=== PATIENT | male | born 1930 | race Caucasian/White ===

== ENCOUNTER 2017-11-19 12:27 | Emergency (ER) | payer BC ==
[2017-11-19] MEDS ORDERED: ONDANSETRON HCL IV 4 MG/2 ML VIAL IVP ONE (12:59)
[2017-11-19] MEDS ORDERED: 0.9 % SODIUM CHLORIDE 1000ML 1,000 ML IV SCH (13:00)
--- NOTE | 2017-11-19 13:04 | Emergency Department Record ---
History of Present Illness - General Chief complaint: Dehydration Stated complaint: NEEDS FLUIDS Time Seen by Provider: 11/19/17 12:59 Source: Patient Mode of Arrival: Ambulatory Limitations: No limitations - History of Present Illness Initial comments: 87 yo male presents to ED for evaluation of nausea, vomiting, and loose stools for the past 5-6 days. Patient reports diffuse abdominal as well, but came to ED for evaluation to the ED for possible dehydration. Patient denies fevers/ chills or productive cough symptoms, denies health problems other than DM. MD Complaint: Generalized weakness Onset/Timin -: Days(s) Location: Generalized Consistency: Constant Improves with: None Worsens with: None Associated Symptoms: Headaches, Loss of appetite, Nausea/vomiting, Myalgias - [place] Coma Scale Eye Response: (4) Open spontaneously Motor Response: (6) Obeys commands Verbal Response: (5) Oriented Juanis Total: 15 - Related Data Home Medications Medication Instructions Recorded Confirmed Last Taken Aspirin Chewable 81 mg PO DAILY 11/19/17 11/19/17 Unknown Dapagliflozin Propanediol [Farxiga] 5 mg PO DAILY 11/19/17 11/19/17 Unknown Ezetimibe 10 mg PO DAILY 11/19/17 11/19/17 Unknown Insulin Glargine,Hum.rec.anlog 48 units SQ QAM 11/19/17 11/19/17 Unknown [Lantus Solostar] Liraglutide [Victoza 3-Ad] 1.8 mg INJ QAM 11/19/17 11/19/17 Unknown Ranitidine HCl 150 mg PO DAILY 11/19/17 11/19/17 Unknown Previous Rx's Medication Instructions Recorded Ondansetron [Zofran Odt] 4 mg PO Q8H PRN #20 tab.rapdis 11/19/17 Sucralfate [Carafate] 1 g PO QID #60 udc 11/19/17 Allergies Allergy/AdvReac Type Severity Reaction Status Date / Time No Known Drug Allergies Allergy Verified 11/19/17 12:42 Travel Screening - Travel/Exposure Within Last 30 Days Have you traveled within the last 30 days?: No Review of Systems Constitutional: Reports: Malaise, Weakness. Denies: Night sweats Eyes: Denies: Eye discharge, Eye pain ENT: Denies: Congestion, Ear pain Respiratory: Denies: Cough, Dyspnea Cardiovascular: Denies: Chest pain, Dyspnea on exertion Endocrine: Denies: Fatigue, Heat or cold intolerance Gastrointestinal: Reports: Abdominal pain, Diarrhea, Nausea, Vomiting Genitourinary: Denies: Incontinence, Retention Musculoskeletal: Denies: Arthralgia, Back pain, Gout, Joint swelling Skin: Denies: Bruising, Change in color Neurological: Reports: Headache. Denies: Abnormal gait, Confusion, Seizure Psychiatric: Denies: Anxiety Hematological/Lymphatic: Denies: Anemia, Blood Clots Past Medical History - SOCIAL HISTORY Smoking Status: Never smoker Alcohol Use: None Drug Use: None - RESPIRATORY Hx Respiratory Disorders: No - CARDIOVASCULAR Hx Cardio Disorders: No - NEURO Hx Neuro Disorders: No - GI Hx GI Disorders: No - Hx Genitourinary Disorders: No - ENDOCRINE Hx Endocrine Disorders: Yes Hx Diabetes: Yes - MUSCULOSKELETAL Hx Musculoskeletal Disorders: No - PSYCH Hx Psych Problems: No - HEMATOLOGY/ONCOLOGY Hx Hematology/Oncology Disorders: No Family Medical History Any Significant Family History?: No Physical Exam - General General Appearance: Alert, Oriented x3, Cooperative, Mild distress Limitations: No limitations - Head Head exam: Atraumatic, Normocephalic, Normal inspection Head exam detail: negative: Abrasion, Contusion, Shabazz's sign, General tenderness, Hematoma, Laceration - Eye Eye exam: Normal appearance. negative: Conjunctival injection, Periorbital swelling, Periorbital tenderness, Scleral icterus - ENT ENT exam: Mucous membranes dry Ear exam: negative: Auricular hematoma, Auricular trauma Nasal Exam: negative: Active bleeding, Discharge, Dried blood, Foreign body Mouth exam: negative: Drooling, Laceration, Muffled voice, Tongue elevation - Neck Neck exam: Normal inspection. negative: Meningismus, Tenderness - Respiratory Respiratory exam: Normal lung sounds bilaterally. negative: Rales, Respiratory distress, Rhonchi, Stridor - Cardiovascular Cardiovascular Exam: Regular rate, Normal rhythm, Normal heart sounds - GI/Abdominal GI/Abdominal exam: Soft, Tenderness (Mild diffuse TTP, no rebound or guarding present). negative: Rebound, Rigid - Rectal Rectal exam: Deferred - exam: Deferred - Extremities Extremities exam: negative: Calf tenderness, Pedal edema - Back Back exam: Denies: CVA tenderness (R), CVA tenderness (L) - Neurological Neurological exam: Alert, Normal gait, Oriented X3 - Psychiatric Psychiatric exam: Normal affect, Normal mood - Skin Skin exam: Normal color. 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 AG 20 Glucose 318 BUN 30 Creatinine 1.0. Awaiting transfer to CT for imaging. Reevaluation #2: 11/19/17 14:42 Patient reassessed, reports improvement in his symptoms and wants to drink fluids. Water provided awaiting CT imaging. Reevaluation #3: 11/19/17 15:07 CT Abdomen and Pelvis: Thickening of the duodenum Enlarged retroperitoenal lymph nodes Enlarged prostate. Patient is tolerating PO at this time, appears stable for discharge with Zofran and Carafate as needed for his recurrent vomiting symptoms. Patient and his were informed of the patient's enlarged lymph nodes and instructed to follow-up with his oncologist in 1 week as directed. Medical Decision Making - Lab Data Result diagrams: 11/19/17 13:00 11/19/17 13:16 Disposition Disposition: Discharge Clinical Impression: Nausea & vomiting Qualifiers: Vomiting type: unspecified Vomiting Intractability: non-intractable Qualified Code(s): R11.2 - Nausea with vomiting, unspecified Disposition: Home, Self-Care Condition: (2) Stable Instructions: Acute Nausea and Vomiting (ED) Additional Instructions: Return to ED if your symptoms worsen or if you have any concerns. Zofran and Carafate as directed. Follow-up with your family doctor in 1-3 days as directed. Follow-up with your oncologist in 3-5 days as directed. Prescriptions: Ondansetron [Zofran Odt] 4 mg PO Q8H PRN #20 tab.rapdis PRN Reason: Nausea/Vomiting Sucralfate [Carafate] 1 g PO QID #60 [facility]: Patient Portal Access Time of Disposition: 15:11 Quality - Quality Measures Quality Measures: N/A - Blood Pressure Screening Does Patient Have Any of the Following: No Blood Pressure Classification: Pre-Hypertensive BP Reading Systolic Measurement: 134 Diastolic Measurement: 86 Screening for High Blood Pressure: < Pre-Hypertensive BP, F/U Documented > [ G8950] Pre-Hypertensive Follow-up Interventions: Referral to alternative/primary care provider.
[2017-11-19 13:13] LABS: HEMATOCRIT 47.6 % (42.0-52.0); HEMOGLOBIN 15.7 gm/dl (14.0-18.0); MEAN CELL VOLUME 91.2 fl (81-97); MEAN CORPUSCULAR HEMOGLOBIN 30.1 pg (27-33); PLATELET COUNT 225 K/uL (130-400); RED BLOOD COUNT 5.22 M/uL (4.40-5.70); RED CELL DISTRIBUTION WIDTH 14.7 % (11.5-14.5)
[2017-11-19 13:28] LABS: WHITE BLOOD COUNT W/O DIFF 37.7 K/uL (4.2-12.2)
[2017-11-19 13:31] LABS: BLOOD UREA NITROGEN 30 mg/dL (8-23)
[2017-11-19 13:32] LABS: EST GLOMERULAR FILTRATION RATE > 60 mL/min; TOTAL PROTEIN 7.1 g/dL (6.6-8.7)
[2017-11-19 13:34] LABS: GLUCOSE,RANDOM 318 mg/dL (74-109)
[2017-11-19 13:37] LABS: ALB/GLOB RATIO 1.5 (1.1-1.8); ALBUMIN 4.3 g/dL (4.0-5.0); ALKALINE PHOSPHATASE 95 U/L (40-129); ALT/SGPT 12 U/L (<41); AST/SGOT 15 U/L (10.0-50.0); LIPASE 16 U/L (13-60)
--- NOTE | 2017-11-20 10:30 | CT SCAN REPORT ---
EXAM: CT OF THE ABDOMEN AND PELVIS WITH CONTRAST HISTORY: NAUSEA, VOMITING, PAIN AND DIARRHEA. APPENDECTOMY. TECHNIQUE: Axial CT scan of the abdomen and pelvis was performed following the intravenous administration of 100 ml of Omnipaque 300 as the IV contrast. No oral contrast was utilized at the referring physician's request. Comparison: None. FINDINGS: No calcified gallstones are seen within the gallbladder. Mild diffuse fatty infiltration of the liver with no focal hepatic mass evident. No definite splenic, adrenal, pancreatic, or renal mass identified. There is a small hiatal hernia. There appears to be a thick walled appearance of the proximal aspect of the duodenal sweep including the descending and transverse portions in particular. This may involve the antrum of the stomach and region of the duodenal bulb as well and is presumably inflammatory change in this region with slight haziness in the adjacent nba-duodenal adipose tissue. The possibility of malignancy would seem less likely, but follow-up after suitable therapy may be useful to confirm or return to a normal appearance. Evaluation of the bowel is limited without oral contrast today. There are some mildly prominent lower posterior mediastinal and upper retrocrural lymph nodes with the largest of these located just posterior to the lower descending thoracic aorta measuring about 9 mm in maximum short axis. There is also a small extrapleural lymph node or nodule in the left lung base posteriorly measuring about 9 x 15 mm in size. These are nonspecific, but more conspicuous than the nodes normally seen in this region and suspicious for mild adenopathy. There are also a few lower retroperitoneal nodes borderline enlarged with the largest measuring about 9 mm in short axis just beyond the aortic bifurcation. Bilateral inguinal nodes also measuring about 9 mm in maximum short axis. The prostate is enlarged measuring about 5.4 cm in transverse x 4.6 cm in AP diameter. Correlation with physical exam and serum PSA suggested. Mild diverticulosis upper sigmoid colon and also some scattered diverticula in the descending colon with a few in the right side of the colon as well, but no definite diverticulitis evident. No appendicitis identified. No free intraperitoneal air or free intraperitoneal fluid identified. Mild degenerative disk disease at the L2-L3 level. IMPRESSION: 1. SMALL HIATAL HERNIA. 2. SOME DIFFUSE THICKENING IN THE WALL OF THE DUODENUM PROBABLY FROM THE LEVEL OF THE BULB THROUGH THE TRANSVERSE PORTION OF THE DUODENAL SWEEP. THIS MAY REPRESENT A DUODENITIS. THERE ARE SEVERAL MILDLY PROMINENT ALTHOUGH NOT DEFINITELY ENLARGED LOWER POSTERIOR MEDIASTINAL AND RETROCRURAL LYMPH NODES WELL AND ALSO A FEW ALONG THE RETROPERITONEUM MORE INFERIORLY WELL IN THE INGUINAL REGION BILATERALLY. THESE ARE NONSPECIFIC. 3. ENLARGED PROSTATE. 4. FOCAL PLEURAL NODULE OR SLIGHTLY PROMINENT NODE POSTERIORLY IN THE LEFT LUNG BASE WELL. 5. DEGENERATIVE CHANGE IN THE SPINE. JOB NUMBER: [id number] MTDD
== END 2017-11-19 15:25 | disposition home or self-care (01) ==
LOC: ER 12:27
DX: R11.2 Nausea with vomiting, unspecified (principal); R19.7 Diarrhea, unspecified; R51 Headache; R53.1 Weakness
CPT/HCPCS: 99284 ×2; 96374; 83605; 83690; 80053; 85027; 74177; Q9967; J2405; J7030

== ENCOUNTER 2017-11-29 17:45 | Observation (INO) | payer BC ==
[2017-11-29] MEDS ORDERED: HUMULIN R 100 UNIT/ML VIAL SC ONE (17:46)
--- NOTE | 2017-11-29 18:13 | Emergency Department Record ---
History of Present Illness - General Chief complaint: Hypergylcemia Stated complaint: ELEVATED BLOOD SUGAR Time Seen by Provider: 11/29/17 18:05 Source: Patient Mode of Arrival: Ambulatory Limitations: No limitations - History of Present Illness Initial comments: 87 yo male presents with elevated blood sugar. He had labs drawn at his oncologist office today. His blood sugar was 600. He has had a sore throat the last few days. He has not taken his medications the last few days for his diabetes. He rarely checks his sugars. He has not felt well for about a month. He has had a decrease in his appetite, frequent nausea with vomiting with intermittent diarrhea. NO blood in either. He was not aware of when his last accu check was performed. PCP is at [facility]. He was at the oncologist today as a followup for leukemia in remission. 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 and runs elevated WBC counts ( His WBC count was 44 on 06/27/17 and most recently 37 on 11/19/17) MD Complaint: Generalized weakness Onset/Timin -: Hour(s) Severity: Moderate Quality: Other Consistency: Constant Improves with: None Worsens with: None Context: Other Associated Symptoms: Nausea/vomiting - [place] Coma Scale Eye Response: (4) Open spontaneously Motor Response: (6) Obeys commands Verbal Response: (5) Oriented Juanis Total: 15 - Related Data Home Medications Medication Instructions Recorded Confirmed Last Taken Atorvastatin Calcium [Lipitor] 40 mg PO DAILY 11/29/17 11/29/17 Unknown Metformin HCl 1,000 mg PO BID 11/29/17 11/29/17 Unknown Previous Rx's Medication Instructions Recorded Ondansetron [Zofran Odt] 4 mg PO Q8H PRN #20 tab.rapdis 11/19/17 Sucralfate [Carafate] 1 g PO QID #60 udc 11/19/17 Allergies Allergy/AdvReac Type Severity Reaction Status Date / Time No Known Drug Allergies Allergy Verified 11/29/17 17:54 Travel Screening - Travel/Exposure Within Last 30 Days Have you traveled within the last 30 days?: No - Travel/Exposure Within Last Year Have you traveled outside the [place] in the last year?: No - Additonal Travel Details Have you been exposed to anyone with a communicable illness?: No - Travel Symptoms Symptom Screening: None Review of Systems Constitutional: Reports: Malaise, Weakness. Denies: Chills, Fever Eyes: Denies: Eye discharge, Eye pain, Photophobia, Vision change ENT: Reports: Throat pain. Denies: Congestion Respiratory: Reports: Cough. Denies: Dyspnea, Hemoptysis, Stridor, Wheezes Cardiovascular: Denies: Chest pain, Palpitations, Syncope Endocrine: Reports: Fatigue, Polydipsia, Polyuria Gastrointestinal: Reports: Diarrhea, Nausea, Vomiting. Denies: Abdominal pain, Constipation, Hematemesis, Hematochezia, Melena Genitourinary: Denies: Dysuria, Frequency, Hematuria Musculoskeletal: Denies: Arthralgia, Back pain, Joint swelling, Myalgia, Neck pain Skin: Denies: Bruising, Change in color, Rash Neurological: Reports: Weakness. Denies: Headache, Numbness Psychiatric: Denies: Anxiety Hematological/Lymphatic: Reports: Easy bruising. Denies: Swollen glands Past Medical History - SOCIAL HISTORY Smoking Status: Never smoker Alcohol Use: None Drug Use: None - RESPIRATORY Hx Respiratory Disorders: No - CARDIOVASCULAR Hx Cardio Disorders: No - NEURO Hx Neuro Disorders: No - GI Hx GI Disorders: No - Hx Genitourinary Disorders: No - ENDOCRINE Hx Endocrine Disorders: Yes Hx Diabetes: Yes - MUSCULOSKELETAL Hx Musculoskeletal Disorders: No - PSYCH Hx Psych Problems: No - HEMATOLOGY/ONCOLOGY Hx Hematology/Oncology Disorders: No Hx Cancer: Yes (leukemia) Family Medical History Any Significant Family History?: No Physical Exam - General General Appearance: Alert, Oriented x3, Cooperative, No acute distress Limitations: No limitations - Head Head exam: Atraumatic, Normal inspection - Eye Eye exam: Normal appearance. negative: Conjunctival injection, Scleral icterus - ENT ENT exam: Normal exam, Mucous membranes dry, Normal orophraynx Ear exam: Normal external inspection Nasal Exam: Normal inspection Mouth exam: Normal external inspection - Neck Neck exam: Normal inspection, Full ROM. negative: Tenderness - Respiratory Respiratory exam: Normal lung sounds bilaterally. negative: Respiratory distress, Rhonchi, Stridor, Wheezes - Cardiovascular Cardiovascular Exam: Regular rate, Normal rhythm, Normal heart sounds Peripheral Pulses: 2+: Radial (R), Radial (L) - GI/Abdominal GI/Abdominal exam: Soft, Normal bowel sounds. negative: Diminished bowel sounds , Rebound, Rigid, Tenderness - Rectal Rectal exam: Deferred - exam: Deferred - Extremities Extremities exam: Normal inspection, Full ROM, Normal capillary refill. negative: Tenderness - Back Back exam: Reports: Normal inspection, Full ROM. Denies: CVA tenderness (R), CVA tenderness (L), Muscle spasm, Rash noted, Tenderness - Neurological Neurological exam: Alert, Normal gait, Oriented X3 - Psychiatric Psychiatric exam: Normal affect, Normal mood - Skin Skin exam: Dry, Intact, Normal color, Warm Course Vital Signs 11/29/17 17:49 Temperature 98.4 F Pulse Rate 64 Respiratory 16 Rate Pulse Ox 96 - Reevaluation(s) Reevaluation #1: 11/29/17 18:41 pH is 7.34 11/29/17 18:52 The CBC was reviewed. The WBC is 45 11/29/17 18:55 The BMP was reviewed. No acute changes with normal HCO3 and AG. Glucose is pending. 11/29/17 19:02 Potassium is 4.6 11/29/17 19:22 Given the elevated blood sugar, diarrhea, and dehydration I recommend admission for glycemic control, hydration and monitoring. I RACHNA Campos of the admission service He was informed he needs a stool sample as well given his diarrhea. Medical Decision Making - Lab Data Result diagrams: 11/29/17 17:55 11/29/17 17:55 Disposition Disposition: Admit Clinical Impression: Nausea & vomiting, Hyperglycemia, Diarrhea Disposition: Still a Patient at [facility] Decision to Admit: Admit from ER Decision to Admit Date: 11/29/17 Decision to Admit Time: 19:25 Condition: (2) Stable Forms: Patient Portal Access Time of Disposition: 19:25 Quality - Quality Measures Quality Measures: N/A - Blood Pressure Screening Does Patient Have Any of the Following: Active Dx of HTN Blood Pressure Classification: Pre-Hypertensive BP Reading Systolic Measurement: 138 Diastolic Measurement: 75 Screening for High Blood Pressure: Patient Exclusion, Hx of HTN [G9744]
[2017-11-29] MEDS ORDERED: 0.9 % SODIUM CHLORIDE 1,000 ML BAG IV ONE (18:16)
[2017-11-29] MEDS ORDERED: ONDANSETRON HCL IV 4 MG/2 ML VIAL IVP ONE (18:16)
[2017-11-29 18:36] LABS: URINE APPEARANCE CLEAR; URINE BILIRUBIN NEGATIVE (NEGATIVE); URINE BLOOD NEGATIVE (NEGATIVE); URINE COLOR YELLOW; URINE KETONE NEGATIVE (NEGATIVE); URINE LEUKOCYTE ESTERASE NEGATIVE (NEGATIVE); URINE NITRITE NEGATIVE (NEGATIVE); URINE PROTEIN NEGATIVE (NEGATIVE); URINE UROBILINOGEN 0.2 E.U./dL (0.20 - 1.00)
[2017-11-29 18:37] LABS: HEMATOCRIT 47.1 % (42.0-52.0); HEMOGLOBIN 15.9 gm/dl (14.0-18.0); MEAN CELL VOLUME 89.9 fl (81-97); MEAN CORPUSCULAR HEMOGLOBIN 30.3 pg (27-33); MEAN CORPUSCULAR HGB CONC 33.8 g/dl (32-36); MEAN PLATELET VOLUME 10.8 fl (7.4-10.4); PLATELET COUNT 246 K/uL (130-400); RED BLOOD COUNT 5.24 M/uL (4.40-5.70); RED CELL DISTRIBUTION WIDTH 14.4 % (11.5-14.5)
[2017-11-29 18:42] LABS: WHITE BLOOD COUNT W/O DIFF 45.7 K/uL (4.2-12.2)
[2017-11-29 18:49] LABS: BLOOD UREA NITROGEN 23 mg/dL (8-23); EST GLOMERULAR FILTRATION RATE > 60 mL/min
[2017-11-29 18:50] LABS: TOTAL PROTEIN 7.5 g/dL (6.6-8.7)
[2017-11-29 18:54] LABS: ALT/SGPT 16 U/L (<41)
[2017-11-29 18:55] LABS: AST/SGOT 15 U/L (10.0-50.0)
[2017-11-29 19:04] LABS: ALB/GLOB RATIO 1.6 (1.1-1.8); ALBUMIN 4.6 g/dL (4.0-5.0); ALKALINE PHOSPHATASE 110 U/L (40-129); LIPASE 31 U/L (13-60)
[2017-11-29 19:05] LABS: GLUCOSE,RANDOM 498 mg/dL (74-109)
[2017-11-29 19:14] LABS: ACETONE,SERUM NEGATIVE (NEGATIVE)
[2017-11-29] MEDS ORDERED: HUMULIN R 100 UNIT/ML VIAL SQ ONE (19:19)
[2017-11-29] MEDS ORDERED: HUMULIN R 100 UNIT/ML VIAL SQ PRN (20:14)
[2017-11-29] MEDS ORDERED: ACETAMINOPHEN 500 MG TABLET PO PRN (20:14)
[2017-11-29 21:15] LABS: URINE GLUCOSE (UA) >=1000 mg/dL (NEGATIVE)
[2017-11-29] MEDS: PANTOPRAZOLE SODIUM IV 40 MG VIAL IV SCH (21:46)
[2017-11-29] MEDS: METFORMIN 500 MG TABLET PO SCH (21:46)
[2017-11-29] MEDS: POTASSIUM CHLORIDE/D5-0.9%NACL 20 MEQ/1,000 ML BAG IV SCH (21:47)
[2017-11-30] MEDS: POTASSIUM CHLORIDE/D5-0.9%NACL 20 MEQ/1,000 ML BAG IV SCH ×2 (05:55→14:16)
[2017-11-30 07:15] LABS: HEMATOCRIT 38.2 % (42.0-52.0); HEMOGLOBIN 12.3 gm/dl (14.0-18.0); MEAN CORPUSCULAR HEMOGLOBIN 29.6 pg (27-33); MEAN CORPUSCULAR HGB CONC 32.2 g/dl (32-36); MEAN PLATELET VOLUME 10.7 fl (7.4-10.4); PLATELET COUNT 182 K/uL (130-400); RED BLOOD COUNT 4.15 M/uL (4.40-5.70); RED CELL DISTRIBUTION WIDTH 14.3 % (11.5-14.5)
[2017-11-30] MEDS ORDERED: HUMULIN R 100 UNIT/ML VIAL SQ SCH (07:30)
[2017-11-30 07:31] LABS: WHITE BLOOD COUNT W/O DIFF 27.5 K/uL (4.2-12.2)
[2017-11-30 07:37] LABS: ALB/GLOB RATIO 1.9 (1.1-1.8); ALBUMIN 3.5 g/dL (4.0-5.0); ALKALINE PHOSPHATASE 76 U/L (40-129); ALT/SGPT 11 U/L (<41); AST/SGOT 10 U/L (10.0-50.0); BLOOD UREA NITROGEN 15 mg/dL (8-23); CREATININE 0.8 mg/dL (0.7-1.2); EST GLOMERULAR FILTRATION RATE > 60 mL/min; GLUCOSE,RANDOM 338 mg/dL (74-109); TOTAL PROTEIN 5.3 g/dL (6.6-8.7)
[2017-11-30] MEDS: ASPIRIN 81 MG CHEWABLE TABLET PO SCH (09:43)
[2017-11-30] MEDS: METFORMIN 500 MG TABLET PO SCH ×2 (09:43→22:41)
[2017-11-30] MEDS: ATORVASTATIN 20 MG TABLET PO SCH (09:43)
[2017-11-30] MEDS: PANTOPRAZOLE SODIUM IV 40 MG VIAL IV SCH (09:44)
[2017-11-30] MEDS: ENOXAPARIN 40 MG/0.4 ML SYR SC SCH (09:44)
[2017-11-30 09:57] LABS: CRYPTOSPORIDIUM PARVUM ANTIGEN NOT DETECTED (NOT DETECT); GIARDIA LAMBLIA ANTIGEN NOT DETECTED (NOT DETECT); ROTOVIRUS DETECTED (NOT DETECT)
[2017-11-30 10:38] LABS: MOLECULAR C DIFF TOXIN SCREEN NOT DETECTED (NOT DETECT)
[2017-11-30 11:03] LABS: STOOL FOR POLYS NO WBC'S OBSERVED (NO WBC'S)
--- NOTE | 2017-11-30 12:08 | History & Physical ---
History of Present Illness - Date of Service Date of Service for History & Physical: 11/30/17 - History of Present Illness Admitting Diagnosis: dehydration, vomiting, diarrhea, hyperglycemia History of Present Illness: Mr. Zhang is an 87 year old male who presented to the ED on with elevated blood sugar. He had labs drawn at his oncologist's office earlier in the day and his blood sugar was 600. He has had a sore throat the last few days and diarrhea for about 2 weeks. He has not taken his medications the last few days for his diabetes. He rarely checks his sugars. He has not felt well for about a month. He has had a decrease in his appetite, frequent nausea with vomiting with intermittent diarrhea. NO blood in either. He was not aware of when his last accu check was performed. PCP is at [facility]. He was at the oncologist today as a followup for leukemia in remission. 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 and runs elevated WBC counts ( His WBC count was 44 on 06/27/17 and most recently 37 on 11/19/17). Additional history includes dm and hyperlipidemia. In the ED, his vital signs were within normal limits. His WBC was 45, no acute changes with normal HC03 and AG, K 4.6. Given the pt's comorbidities, elevated blood sugar, diarrhea, and dehydration, he was admitted for glycemic control, hydration and monitoring. A stool sample was obtained for culture. Plan IV hydration and laboratory monitoring. 11/30/17: Pt. is resting comfortably in bed. His and son are at his bedside. Informed pt. that his stool was positive for rotovirus and explained treatment with supportive care. Plan to advance diet as tolerated, continue IV fluids for dehydration, and glycemic monitoring with SS insulin. Travel Screening - Travel/Exposure Within Last 30 Days Have you traveled within the last 30 days?: No - Travel/Exposure Within Last Year Have you traveled outside the [place] in the last year?: No - Additonal Travel Details Have you been exposed to anyone with a communicable illness?: No - Travel Symptoms Symptom Screening: None Review of Systems Constitutional: Reports: Malaise, Weakness. Denies: Chills, Fever Eyes: Denies: Eye discharge, Eye pain, Photophobia, Vision change ENT: Reports: Throat pain. Denies: Congestion Respiratory: Reports: Cough. Denies: Dyspnea, Hemoptysis, Stridor, Wheezes Cardiovascular: Denies: Chest pain, Palpitations, Syncope Endocrine: Reports: Fatigue, Polydipsia, Polyuria Gastrointestinal: Reports: Diarrhea, Nausea, Vomiting. Denies: Abdominal pain, Constipation, Hematemesis, Hematochezia, Melena Genitourinary: Denies: Dysuria, Frequency, Hematuria Musculoskeletal: Denies: Arthralgia, Back pain, Joint swelling, Myalgia, Neck pain Skin: Denies: Bruising, Change in color, Rash Neurological: Reports: Weakness. Denies: Headache, Numbness Psychiatric: Denies: Anxiety Hematological/Lymphatic: Reports: Easy bruising. Denies: Swollen glands Past Medical History - SOCIAL HISTORY Smoking Status: Never smoker - RESPIRATORY Hx Respiratory Disorders: No - CARDIOVASCULAR Hx Cardio Disorders: No - NEURO Hx Neuro Disorders: No - GI Hx GI Disorders: No - Hx Genitourinary Disorders: No - ENDOCRINE Hx Endocrine Disorders: Yes Hx Diabetes: Yes - MUSCULOSKELETAL Hx Musculoskeletal Disorders: No - PSYCH Hx Psych Problems: No - HEMATOLOGY/ONCOLOGY Hx Hematology/Oncology Disorders: No Hx Cancer: Yes (leukemia) Family Medical History Any Significant Family History?: No H&P Meds/Allergies - Allergies Allergies: Allergies Allergy/AdvReac Type Severity Reaction Status Date / Time No Known Drug Allergies Allergy Verified 11/29/17 17:54 - Home Medications Home Medications Medication Instructions Recorded Confirmed Last Taken Atorvastatin Calcium [Lipitor] 40 mg PO DAILY 11/29/17 11/29/17 Unknown Metformin HCl 1,000 mg PO BID 11/29/17 11/29/17 Unknown Previous Rx's Medication Instructions Recorded Ondansetron [Zofran Odt] 4 mg PO Q8H PRN #20 tab.rapdis 11/19/17 Sucralfate [Carafate] 1 g PO QID #60 udc 11/19/17 - Active Medications Active Medications: Current Medications Acetaminophen (Tylenol 500mg Tab) 500 mg PO Q6H PRN PRN Reason: PAIN/TEMP Aspirin (Aspirin Chewable) 81 mg PO DAILY [facility] Last Admin: 11/30/17 09:43 Dose: 81 mg Atorvastatin Calcium (Lipitor) 40 mg PO DAILY [facility] Last Admin: 11/30/17 09:43 Dose: 40 mg Enoxaparin Sodium (Lovenox) 40 mg SC DAILY [facility] Last Admin: 11/30/17 09:44 Dose: 40 mg Potassium Chloride/Dextrose/Sod Cl () 20 meq in 1,000 mls @ 125 mls/hr IV Q8H [facility] Last Admin: 11/30/17 05:55 Dose: 125 mls/hr Insulin Human Regular (Humulin R) 1 unit SQ TIDAC [facility]; Protocol Metformin HCl (Glucophage Ir) 1,000 mg PO BID [facility] Last Admin: 11/30/17 09:43 Dose: 1,000 mg Ondansetron HCl (Zofran) 4 mg IVP Q4H PRN PRN Reason: NAUSEA Pantoprazole Sodium (Protonix Iv) 40 mg IV DAILY [facility] Last Admin: 11/30/17 09:44 Dose: 40 mg Physical Exam - Vital Signs Vital Signs: Vital Signs - Last 24 Hrs Temp Pulse Pulse Resp BP BP Pulse Ox 11/30/17 09:36 98.5 F 103/49 11/30/17 08:00 98.5 F 59 L 16 103/49 97 11/29/17 20:54 65 16 11/29/17 20:00 98.0 F 65 18 140/72 95 11/29/17 19:38 66 16 138/66 95 11/29/17 19:35 65 20 138/66 97 11/29/17 17:49 98.4 F 64 16 138/75 96 - General General Appearance: Alert, Oriented x3, Cooperative, No acute distress Limitations: No limitations - Head Head exam: Atraumatic, Normal inspection - Eye Eye exam: Normal appearance. negative: Conjunctival injection, Scleral icterus - ENT ENT exam: Normal exam, Mucous membranes dry, Normal orophraynx Ear exam: Normal external inspection Nasal Exam: Normal inspection Mouth exam: Normal external inspection - Neck Neck exam: Normal inspection, Full ROM. negative: Tenderness - Respiratory Respiratory exam: Normal lung sounds bilaterally. negative: Respiratory distress, Rhonchi, Stridor, Wheezes - Cardiovascular Cardiovascular Exam: Regular rate, Normal rhythm, Normal heart sounds Peripheral Pulses: 2+: Radial (R), Radial (L) - GI/Abdominal GI/Abdominal exam: Soft, Normal bowel sounds. negative: Diminished bowel sounds , Rebound, Rigid, Tenderness - Rectal Rectal exam: Deferred - exam: Deferred - Extremities Extremities exam: Normal inspection, Full ROM, Normal capillary refill. negative: Tenderness - Back Back exam: Reports: Normal inspection, Full ROM. Denies: CVA tenderness (R), CVA tenderness (L), Muscle spasm, Rash noted, Tenderness - Neurological Neurological exam: Alert, Normal gait, Oriented X3 - Psychiatric Psychiatric exam: Normal affect, Normal mood - Skin Skin exam: Dry, Intact, Normal color, Warm Results - Labs Result Diagrams: 11/30/17 06:10 11/30/17 06:10 Labs Last 24 Hours: Laboratory Results - last 24 hr 11/29/17 11/29/17 11/29/17 09:11 17:55 17:55 WBC 45.7 H* RBC 5.24 Hgb 15.9 Hct 47.1 MCV 89.9 MCH 30.3 MCHC 33.8 RDW 14.4 Plt Count 246 MPV 10.8 H Neutrophils % 29.0 L Band Neutrophils % Eosinophils % Not Reportable Basophils % Not Reportable Lymphocytes 67.0 H Monocytes 4.0 Basophils Eosinophil Count VBG pH 7.34 Sodium 137 Potassium 4.6 H Chloride 96 L Carbon Dioxide 25.0 Anion Gap 16.0 BUN 23 Creatinine 1.0 Estimated GFR > 60 POC Glucose Random Glucose 498 H* Hemoglobin A1c Calcium 9.7 Total Bilirubin 0.40 AST 15 ALT 16 Alkaline Phosphatase 110 Total Protein 7.5 Albumin 4.6 Globulin 2.9 Albumin/Globulin Ratio 1.6 Lipase 31 Urine Color Urine Appearance Urine pH Ur Specific [place] Urine Protein Urine Glucose (UA) Urine Ketones Urine Blood Urine Nitrite Urine Bilirubin Urine Urobilinogen Ur Leukocyte Esterase Stool Occult Blood Stool for White Cells No wbc's observed Rotavirus Antigen Detected Acetone, Qual Negative C. difficile Ag & Toxin Not detected Cryptosporid parvum Ag Not detected Giardia lamblia Ag Not detected 11/29/17 11/29/17 11/29/17 18:30 20:30 22:00 WBC RBC Hgb Hct MCV MCH MCHC RDW Plt Count MPV Neutrophils % Band Neutrophils % Eosinophils % Basophils % Lymphocytes Monocytes Basophils Eosinophil Count VBG pH Sodium Potassium Chloride Carbon Dioxide Anion Gap BUN Creatinine Estimated GFR POC Glucose 357 H Cancelled Random Glucose Hemoglobin A1c Calcium Total Bilirubin AST ALT Alkaline Phosphatase Total Protein Albumin Globulin Albumin/Globulin Ratio Lipase Urine Color Yellow Urine Appearance Clear Urine pH 5.5 Ur Specific [place] 1.010 Urine Protein Negative Urine Glucose (UA) >=1000 mg/dl H Urine Ketones Negative Urine Blood Negative Urine Nitrite Negative Urine Bilirubin Negative Urine Urobilinogen 0.2 Ur Leukocyte Esterase Negative Stool Occult Blood Negative Stool for White Cells Rotavirus Antigen Acetone, Qual C. difficile Ag & Toxin Cryptosporid parvum Ag Giardia lamblia Ag 11/30/17 11/30/17 11/30/17 06:00 06:00 06:10 WBC 27.5 H* RBC 4.15 L Hgb 12.3 L Hct 38.2 L MCV 92.0 MCH 29.6 MCHC 32.2 RDW 14.3 Plt Count 182 MPV 10.7 H Neutrophils % 22.0 L Band Neutrophils % 0.0 Eosinophils % Not Reportable Basophils % Not Reportable Lymphocytes 72.0 H Monocytes 5.0 Basophils 0.0 Eosinophil Count 1.0 VBG pH Sodium Cancelled Potassium Cancelled Chloride Cancelled Carbon Dioxide Cancelled Anion Gap Cancelled BUN Cancelled Creatinine Cancelled Estimated GFR Cancelled POC Glucose 300 H Random Glucose Cancelled Hemoglobin A1c Calcium Cancelled Total Bilirubin AST ALT Alkaline Phosphatase Total Protein Albumin Globulin Albumin/Globulin Ratio Lipase Urine Color Urine Appearance Urine pH Ur Specific [place] Urine Protein Urine Glucose (UA) Urine Ketones Urine Blood Urine Nitrite Urine Bilirubin Urine Urobilinogen Ur Leukocyte Esterase Stool Occult Blood Stool for White Cells Rotavirus Antigen Acetone, Qual C. difficile Ag & Toxin Cryptosporid parvum Ag Giardia lamblia Ag 11/30/17 11/30/17 06:10 06:10 WBC RBC Hgb Hct MCV MCH MCHC RDW Plt Count MPV Neutrophils % Band Neutrophils % Eosinophils % Basophils % Lymphocytes Monocytes Basophils Eosinophil Count VBG pH Sodium 142 Potassium 4.2 Chloride 104 Carbon Dioxide 25.0 Anion Gap 13.0 BUN 15 Creatinine 0.8 Estimated GFR > 60 POC Glucose Random Glucose 338 H Hemoglobin A1c 9.50 H Calcium 8.1 L Total Bilirubin 0.40 AST 10 ALT 11 Alkaline Phosphatase 76 Total Protein 5.3 L Albumin 3.5 L Globulin 1.8 Albumin/Globulin Ratio 1.9 H Lipase Urine Color Urine Appearance Urine pH Ur Specific [place] Urine Protein Urine Glucose (UA) Urine Ketones Urine Blood Urine Nitrite Urine Bilirubin Urine Urobilinogen Ur Leukocyte Esterase Stool Occult Blood Stool for White Cells Rotavirus Antigen Acetone, Qual C. difficile Ag & Toxin Cryptosporid parvum Ag Giardia lamblia Ag VTE H&P Assessment - Risk for VTE Risk for VTE: Yes Risk Level: Moderate Risk Assessment Date: 11/30/17 Risk Assessment Time: 09:00 VTE Orders Placed or Will Be Placed: Yes Plan - Detailed Diagnosis and Plan (1) Rotavirus enteritis Current Visit: Yes Status: Acute Base Code: A08.0 - ROTAVIRAL ENTERITIS Comment: 11/30/17 -Stool positive for rotovirus, contact isolation -Continue IV hydration -Advance diet as tolerated -Zofran 4mg q4h prn nausea (2) Hyperglycemia Current Visit: Yes Status: Acute Base Code: R73.9 - HYPERGLYCEMIA, UNSPECIFIED Comment: 11/30/17: -Accuchecks tidac, ss insulin -A1C 9.5, accuchecks have ranged from 300-380 since admission -pt. advanced to ADA diet for lunch and dinner today (3) At risk for deep venous thrombosis Current Visit: Yes Status: Acute Base Code: Z91.89 - OTH PERSONAL RISK FACTORS, NOT ELSEWHERE CLASSIFIED Comment: 11/30/17 -moderate risk for dvt -40mg lovenox sc daily (4) Full code status Current Visit: Yes Status: Acute Base Code: Z78.9 - OTHER SPECIFIED HEALTH STATUS Comment: 11/30/17 Pt. is full code status
[2017-11-30] MEDS: ONDANSETRON HCL IV 4 MG/2 ML VIAL IVP PRN ×2 (12:52→17:49)
[2017-11-30] MEDS: HUMULIN R 100 UNIT/ML VIAL SQ SCH ×2 (17:59→20:39)
[2017-12-01 06:59] LABS: HEMATOCRIT 38.1 % (42.0-52.0); HEMOGLOBIN 12.2 gm/dl (14.0-18.0); MEAN CELL VOLUME 92.7 fl (81-97); MEAN PLATELET VOLUME 10.7 fl (7.4-10.4); PLATELET COUNT 165 K/uL (130-400); RED BLOOD COUNT 4.11 M/uL (4.40-5.70)
[2017-12-01 07:01] LABS: MEAN CORPUSCULAR HEMOGLOBIN 29.6 pg (27-33); WHITE BLOOD COUNT W/O DIFF 27.1 K/uL (4.2-12.2)
[2017-12-01 07:07] LABS: ALB/GLOB RATIO 1.7 (1.1-1.8); ALBUMIN 3.5 g/dL (4.0-5.0); ALKALINE PHOSPHATASE 78 U/L (40-129); ALT/SGPT 11 U/L (<41); AST/SGOT 10 U/L (10.0-50.0); BLOOD UREA NITROGEN 16 mg/dL (8-23); EST GLOMERULAR FILTRATION RATE > 60 mL/min; GLUCOSE,RANDOM 296 mg/dL (74-109); TOTAL PROTEIN 5.6 g/dL (6.6-8.7)
[2017-12-01] MEDS: ATORVASTATIN 20 MG TABLET PO SCH (08:37)
[2017-12-01] MEDS: METFORMIN 500 MG TABLET PO SCH (08:38)
[2017-12-01] MEDS: PANTOPRAZOLE SODIUM IV 40 MG VIAL IV SCH (08:38)
[2017-12-01] MEDS: ASPIRIN 81 MG CHEWABLE TABLET PO SCH (08:38)
[2017-12-01] MEDS: ENOXAPARIN 40 MG/0.4 ML SYR SC SCH (08:39)
--- NOTE | 2017-12-01 09:56 | Discharge Summary ---
Providers Discharge Summary Date: 12/01/17 Date of admission: 11/29/17 19:53 Expected Date of Discharge: 12/01/17 Attending physician: DAYRON NEWMAN Primary care physician: JON FENTON Physical Exam - Vital Signs Vital Signs: Vital Signs - Last 24 Hrs Temp Pulse Pulse Resp BP Pulse Ox 12/01/17 09:00 59 L 60 12/01/17 08:00 97.7 F 69 16 109/59 96 11/30/17 21:00 66 18 11/30/17 20:00 98.9 F 70 18 106/58 94 L 11/30/17 16:00 98.2 F 65 16 114/64 100 11/30/17 12:00 97.7 F 61 16 104/63 96 - General General Appearance: Alert, Oriented x3, Cooperative, No acute distress Limitations: No limitations - Head Head exam: Atraumatic, Normal inspection - Eye Eye exam: Normal appearance. negative: Conjunctival injection, Scleral icterus - ENT ENT exam: Normal exam, Mucous membranes dry, Normal orophraynx Ear exam: Normal external inspection Nasal Exam: Normal inspection Mouth exam: Normal external inspection - Neck Neck exam: Normal inspection, Full ROM. negative: Tenderness - Respiratory Respiratory exam: Normal lung sounds bilaterally. negative: Respiratory distress, Rhonchi, Stridor, Wheezes - Cardiovascular Cardiovascular Exam: Regular rate, Normal rhythm, Normal heart sounds Peripheral Pulses: 2+: Radial (R), Radial (L) - GI/Abdominal GI/Abdominal exam: Soft, Normal bowel sounds. negative: Diminished bowel sounds , Rebound, Rigid, Tenderness - Rectal Rectal exam: Deferred - exam: Deferred - Extremities Extremities exam: Normal inspection, Full ROM, Normal capillary refill. negative: Tenderness - Back Back exam: Reports: Normal inspection, Full ROM. Denies: CVA tenderness (R), CVA tenderness (L), Muscle spasm, Rash noted, Tenderness - Neurological Neurological exam: Alert, Normal gait, Oriented X3 - Psychiatric Psychiatric exam: Normal affect, Normal mood - Skin Skin exam: Dry, Intact, Normal color, Warm Hospitalization - Hospitalization Admission Diagnosis: dehydration, vomiting, diarrhea, hyperglycemia - Problem List/Discharge Diagnosis (1) Rotavirus enteritis Current Visit: Yes Status: Acute Base Code: A08.0 - ROTAVIRAL ENTERITIS Comment: 12/01/17 -Stool positive for rotavirus, contact isolation -d/c home today, will send with Rx of zofran q4h for nausea, supportive care for rotavirus (2) Hyperglycemia Current Visit: Yes Status: Acute Base Code: R73.9 - HYPERGLYCEMIA, UNSPECIFIED Comment: 12/01/17: -Accuchecks tidac, ss insulin -A1C 9.5, accuchecks this morning was 296 (his normal range is likely around 230 ). Pt. to be d/c'd home this morning and will restart long-acting insulin at home (3) At risk for deep venous thrombosis Current Visit: Yes Status: Acute Base Code: Z91.89 - OTH PERSONAL RISK FACTORS, NOT ELSEWHERE CLASSIFIED Comment: 12/01/17 -moderate risk for dvt -pt. is d/c home today and will return to normal level of activity (4) Full code status Current Visit: Yes Status: Acute Base Code: Z78.9 - OTHER SPECIFIED HEALTH STATUS Comment: 12/01/17 Pt. is full code status - Hospitalization Course Hospital Course: Mr. Gilmore is an 87 year old male who presented to the ED on with elevated blood sugar. He had labs drawn at his oncologist's office earlier in the day and his blood sugar was 600. He has had a sore throat the last few days and diarrhea for about 2 weeks. He has not taken his medications the last few days for his diabetes. He rarely checks his sugars. He has not felt well for about a month. He has had a decrease in his appetite, frequent nausea with vomiting with intermittent diarrhea. NO blood in either. He was not aware of when his last accu check was performed. PCP is at [facility]. He was at the oncologist today as a followup for leukemia in remission. 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 and runs elevated WBC counts ( His WBC count was 44 on 06/27/17 and most recently 37 on 11/19/17). Additional history includes dm and hyperlipidemia. In the ED, his vital signs were within normal limits. His WBC was 45, no acute changes with normal HC03 and AG, K 4.6. Given the pt's co-morbidities, elevated blood sugar, diarrhea, and dehydration, he was admitted for glycemic control, hydration and monitoring. A stool sample was obtained for culture. Plan IV hydration and laboratory monitoring. 11/30/17: Pt. is resting comfortably in bed. His and son are at his bedside. Informed pt. that his stool was positive for rotavirus and explained treatment with supportive care. Plan to advance diet as tolerated, continue IV fluids for dehydration, and glycemic monitoring with SS insulin. 12/01/17: Pt. is sitting up in bed, he states he feels much improved and the frequency of his bowel movements has decreased and are becoming more formed. He is tolerating is advanced diet well and has only occasional nausea after he eats- responds well to po zofran. His blood glucose levels have improved, 296 this morning (his A1C was 9.5 on 11/30). His WBC has decreased to 27.1, which is his baseline with his CLL. Pt. will d/c home to day and resume long-acting insulin at home. Instructed pt. on supportive care for rotavirus. 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 Abnormal Labs: Abnormal Lab Results 11/29/17 11/29/17 11/29/17 Range/Units 17:55 17:55 18:30 WBC 45.7 H* (4.2-12.2) K/uL RBC (4.40-5.70) M/uL Hgb (14.0-18.0) gm/dl Hct (42.0-52.0) % MPV 10.8 H (7.4-10.4) fl Neutrophils % 29.0 L (47-80) % Lymphocytes 67.0 H (16-45) % Potassium 4.6 H (3.4-4.5) mmol/L Chloride 96 L (98-107) mmol/L POC Glucose (70-110) mg/dL Random Glucose 498 H* (74-109) mg/dL Hemoglobin A1c (4.0-6.00) % Calcium (8.8-10.2) mg/dL Total Protein (6.6-8.7) g/dL Albumin (4.0-5.0) g/dL Albumin/Globulin Ratio (1.1-1.8) Urine Glucose (UA) >=1000 mg/dl H (NEGATIVE) 11/29/17 11/30/17 11/30/17 Range/Units 20:30 06:00 06:10 WBC 27.5 H* (4.2-12.2) K/uL RBC 4.15 L (4.40-5.70) M/uL Hgb 12.3 L (14.0-18.0) gm/dl Hct 38.2 L (42.0-52.0) % MPV 10.7 H (7.4-10.4) fl Neutrophils % 22.0 L (47-80) % Lymphocytes 72.0 H (16-45) % Potassium (3.4-4.5) mmol/L Chloride (98-107) mmol/L POC Glucose 357 H 300 H (70-110) mg/dL Random Glucose (74-109) mg/dL Hemoglobin A1c (4.0-6.00) % Calcium (8.8-10.2) mg/dL Total Protein (6.6-8.7) g/dL Albumin (4.0-5.0) g/dL Albumin/Globulin Ratio (1.1-1.8) Urine Glucose (UA) (NEGATIVE) 11/30/17 11/30/17 11/30/17 Range/Units 06:10 06:10 17:45 WBC (4.2-12.2) K/uL RBC (4.40-5.70) M/uL Hgb (14.0-18.0) gm/dl Hct (42.0-52.0) % MPV (7.4-10.4) fl Neutrophils % (47-80) % Lymphocytes (16-45) % Potassium (3.4-4.5) mmol/L Chloride (98-107) mmol/L POC Glucose 410 H (70-110) mg/dL Random Glucose 338 H (74-109) mg/dL Hemoglobin A1c 9.50 H (4.0-6.00) % Calcium 8.1 L (8.8-10.2) mg/dL Total Protein 5.3 L (6.6-8.7) g/dL Albumin 3.5 L (4.0-5.0) g/dL Albumin/Globulin Ratio 1.9 H (1.1-1.8) Urine Glucose (UA) (NEGATIVE) 11/30/17 12/01/17 12/01/17 Range/Units 22:00 06:00 06:00 WBC 27.1 H* (4.2-12.2) K/uL RBC 4.11 L (4.40-5.70) M/uL Hgb 12.2 L (14.0-18.0) gm/dl Hct 38.1 L (42.0-52.0) % MPV 10.7 H (7.4-10.4) fl Neutrophils % 24.0 L (47-80) % Lymphocytes 73.0 H (16-45) % Potassium 4.8 H (3.4-4.5) mmol/L Chloride (98-107) mmol/L POC Glucose 388 H (70-110) mg/dL Random Glucose 296 H (74-109) mg/dL Hemoglobin A1c (4.0-6.00) % Calcium 8.3 L (8.8-10.2) mg/dL Total Protein 5.6 L (6.6-8.7) g/dL Albumin 3.5 L (4.0-5.0) g/dL Albumin/Globulin Ratio (1.1-1.8) Urine Glucose (UA) (NEGATIVE) Condition at Discharge: (2) Stable VTE Discharge VTE Reason For No Overlap Therapy: Not Indicated (Pt. will return to normal level of activity post-discharge, he does take 81mg ASA daily) Discharge Medications - Discharge Medications Prescriptions: Ondansetron [Zofran Odt] 4 mg PO Q8H PRN #20 tab.rapdis PRN Reason: Nausea/Vomiting Home Medications: Ambulatory Orders Aspirin Chewable 81 mg PO DAILY 11/19/17 [Last Taken Unknown] Dapagliflozin Propanediol [Farxiga] 5 mg PO DAILY 11/19/17 [Last Taken Unknown] Ezetimibe 10 mg PO DAILY 11/19/17 [Last Taken Unknown] Insulin Glargine,Hum.rec.anlog [Lantus Solostar] 48 units SQ QAM 11/19/17 [Last Taken 11/28/17] Liraglutide [Victoza 3-Ad] 1.8 mg INJ QAM 11/19/17 [Last Taken Unknown] Ranitidine HCl 150 mg PO DAILY 11/19/17 [Last Taken Unknown] Sucralfate [Carafate] 1 g PO QID #60 udc 11/19/17 [Last Taken Unknown] Atorvastatin Calcium [Lipitor] 40 mg PO DAILY 11/29/17 [Last Taken Unknown] Metformin HCl 1,000 mg PO BID 11/29/17 [Last Taken Unknown] Ondansetron [Zofran Odt] 4 mg PO Q8H PRN #20 tab.zoniadis 12/01/17 [Last Taken Unknown] Discharge Plan - Discharge Instructions Activity at Discharge: Increase Activity as Tolerated Diet at Discharge: Diabetic Diet Additional Instructions: Follow up with your primary care provider within 5-7 days for a hospitalization follow up Zofran 4mg every 4 hours as needed for nausea Continue to increase fluids, rest, supportive care for rotovirus, proper hand- washing hygiene to prevent spread of the infection Return to the ED if you develop a fever, weakness, confusion, worsening diarrhea , or any chest pain/pressure Quality Measures - Quality Measures Quality Measures: Advance Directives, Documentation of Current Medications in Medical Record, Elder Maltreatment Screen and Follow-Up Plan, Screening for High Blood Pressure and F/U Documented - Current Medications Quality Measure: Measure #130: Documentation of Current Medications Documentation of Current Medications: <Current Medications Documented/Reviewed> [A3878] - Blood Pressure Screening Quality Measure: Screening for High Blood Pressure and Follow-Up Documented Does Patient Have Any of the Following: No Blood Pressure Classification: Normal BP Reading Systolic Measurement: 103 Diastolic Measurement: 49 Screening for High Blood Pressure: < Normal BP, F/U Not Required > [[id number]] - Advance Directives Quality Measure: Measure #47: Care Plan Advance Directives Established: No Advance Directives Information Provided To Patient: Yes Advance Directives on File: No Living Will: No Power of Dental Ceramist Helper: Yes (MDPO) Power of Dental Ceramist Helper Name: DEION GILMORE Advance Care Planning: <Care Plan/Decision Maker Documented; Discussed & Documented> [[id number]] - Elder Abuse Suspicion Index Screening: Elder Abuse Suspicion Index Screening Rely on people for bathing, dressing, shopping, banking, etc: No Prevented from getting food, clothes, medication, etc: No Made to feel shamed or threatened by someone: No Forced to sign papers or use money against will: No Feel afraid, touched in ways not wanted or hurt physically: No Poor eye contact, withdrawn, malnourished, cuts or bruises: No Screening Result: Negative result EASI Reference Information: Lgoan KUMAR, Jet C, Christal D, Jaquan Montesinos.Development and validation of a tool to assist physicians identification of elder abuse: The Elder Abuse Suspicion Index (EASI ). Journal of Elder Abuse and Neglect, 2008; 20 (3): 276-300. - Elder Maltreatment Screen Quality Measures: Elder Maltreatment Screen and Follow-Up Plan Elder Maltreatment Screen: <Negative, No Follow-Up Plan Required> [G8734]
== END 2017-12-01 11:30 | disposition home or self-care (01) ==
LOC: ER 17:45 → INTOOBSV 19:53 → MEDSURG 19:53
PROVIDERS: ADMIT Internal Medicine; ATTEND Internal Medicine
DX: R73.9 Hyperglycemia, unspecified (principal); A08.0 Rotaviral enteritis; E86.0 Dehydration; R11.2 Nausea with vomiting, unspecified; R19.7 Diarrhea, unspecified; E11.9 Type 2 diabetes mellitus without complications; Z79.4 Long term (current) use of insulin; Z85.6 Personal history of leukemia
CPT/HCPCS: 82800; 83690; 87329; 80053 ×3; 36416 ×2; 82009; 89055; 87425; 83036; 82948 ×2; 81003; 82272; 87493; 85027 ×3; G0378 ×3; J2405 ×2; J1815; 96365; 96366; 96372; 96374; 99217; 99220; 99285; C9113; J1650; J3480; J7030

== ENCOUNTER 2018-03-12 18:46 | Emergency (ER) | payer BC ==
[2018-03-12] MEDS ORDERED: FENTANYL PF 100MCG/2ML VIAL IVP ONE ×3 (18:53→19:33)
[2018-03-12] MEDS ORDERED: ONDANSETRON HCL IV 4 MG/2 ML VIAL IVP ONE (18:53)
[2018-03-12] MEDS ORDERED: RINGERS SOLUTION,LACTATED 1,000 ML IV PRN (18:53)
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
[2018-03-12 19:10] LABS: HEMATOCRIT 43.1 % (42.0-52.0); HEMOGLOBIN 14.2 gm/dl (14.0-18.0); MEAN CELL VOLUME 89.6 fl (81-97); MEAN CORPUSCULAR HEMOGLOBIN 29.5 pg (27-33); MEAN CORPUSCULAR HGB CONC 32.9 g/dl (32-36); MEAN PLATELET VOLUME 10.6 fl (7.4-10.4); PLATELET COUNT 228 K/uL (130-400); RED BLOOD COUNT 4.81 M/uL (4.40-5.70); RED CELL DISTRIBUTION WIDTH 14.1 % (11.5-14.5)
[2018-03-12] MEDS ORDERED: Diph,Pert(Acell),Tet Vac 0.5 ML SYR IM ONE (19:10)
[2018-03-12 19:16] LABS: WHITE BLOOD COUNT W/O DIFF 45.5 K/uL (4.2-12.2)
[2018-03-12] MEDS ORDERED: LORAZEPAM 2 MG/ML VIAL IV ONE (19:20)
[2018-03-12 19:21] LABS: BILIRUBIN,TOTAL 0.3 mg/dL (0.2-1.0); CREATININE 1.4 mg/dL (0.7-1.2)
[2018-03-12 19:22] LABS: TOTAL PROTEIN 7.3 g/dL (6.6-8.7)
[2018-03-12 19:27] LABS: ALB/GLOB RATIO 1.7 (1.1-1.8); ALBUMIN 4.6 g/dL (4.0-5.0)
[2018-03-12 19:39] LABS: PLATELET ESTIMATE NORMAL (NORMAL)
== END 2018-03-12 19:35 | disposition short-term general hospital (02) ==
LOC: ER 18:46
DX: T24.292A Burn of second degree of multiple sites of left lower limb, except ankle and foot, initial encounter (principal); T24.291A Burn of second degree of multiple sites of right lower limb, except ankle and foot, initial encounter; T21.22XA Burn of second degree of abdominal wall, initial encounter; S80.211A Abrasion, right knee, initial encounter; R61 Generalized hyperhidrosis; R25.1 Tremor, unspecified; E11.9 Type 2 diabetes mellitus without complications; Z79.4 Long term (current) use of insulin; Z79.84 Long term (current) use of oral hypoglycemic drugs; X03.8XXA Other exposure to controlled fire, not in building or structure, initial encounter; W40.8XXA Explosion of other specified explosive materials, initial encounter
CPT/HCPCS: 16030; 99291 ×2; 96374; 96375; 83605; 80053; 85027; J2405; J3010; J2060; J7120